=== PATIENT | male | born 1990 | race Caucasian/White ===

== ENCOUNTER 2023-12-23 10:32 | Emergency (ER) | payer OTHER ==
[2023-12-23] MEDS: Lidocaine 1% 30 ML SDV INJECT ONE (11:23)
[2023-12-23] MEDS: Diphtheria,Pertussis(Acell),Tetanus Vaccine 0.5 ML Syringe IM ONE (11:29)
== END 2023-12-23 11:52 | disposition home or self-care (01) ==
LOC: SUPCPDRO 10:32 → VM.ED 10:32
DX: S61.211A Laceration without foreign body of left index finger without damage to nail, initial encounter (principal); Z23 Encounter for immunization; Z87.891 Personal history of nicotine dependence; W26.8XXA Contact with other sharp object(s), not elsewhere classified, initial encounter; Y93.89 Activity, other specified
CPT/HCPCS: 12001; 90471; 90715; 99282-25; J3490